=== PATIENT | male | born 1945 | race Caucasian/White ===

== ENCOUNTER 2019-03-08 06:09 | Inpatient (IN) ==
--- NOTE | 2019-02-18 16:05 | PAT Medication Instructions ---
Medication Instructions Date of Service February 18, 2019 Home Medications aspirin [Aspir-81] 81 mg PO QAM carvedilol 3.125 mg PO BID cetirizine [Zyrtec] 5 mg PO PM magnesium 250 mg PO QAM prasugrel 10 mg PO QAM rosuvastatin 10 mg PO PM valsartan 80 mg PO QAM ASK your prescriber and surgeon aspirin [Aspir-81] 81 mg PO QAM prasugrel 10 mg PO QAM DO NOT take the morning of surgery magnesium 250 mg PO QAM valsartan 80 mg PO QAM Take morning of surgery With a small sip of water, OTHERWISE NOTHING TO EAT OR DRINK AFTER MIDNIGHT: carvedilol 3.125 mg PO BID Take evening before surgery carvedilol 3.125 mg PO BID cetirizine [Zyrtec] 5 mg PO PM rosuvastatin 10 mg PO PM Other Notes If you have any questions please call us at [phone] or [phone] or [phone] or [phone]
--- NOTE | 2019-02-21 13:02 | Anesthesiology Consultation ---
Date of Service February 21, 2019 Assessment & Plan (1) Encounter for pre-operative examination: - Awaiting cardiology office visit scheduled 02/22 (Dr. Mejias/Rico). Also, awaiting most recent ECHO report (if available). - Elevated creatinine on preop labs: awaiting response from PCP (Dr. Hawk). - Medication instructions: ASA okay to continue perioperatively per surgeon. Prasugrel instructions per surgeon/cardiology. Chart Review Chart Review: Patient seen in Pre Admission Testing Teaching & Discussion Pre-Anesthesia Teaching/Discussion Notes: Instructed NPO after midnight before surgery,except medications with 15 cc of water. Medication instructions provided according to the PAT guidelines. History Surgery Operation Date: 03/08/19 07:45 Proposed Procedures p L2-S1 Decompression Fusion, Spinal Cord Monitoring - Kwadwo Saucedo DO Height/Weight Height: 5 ft 8 in Weight: 94.1 kg Allergies Allergy/AdvReac Type Severity Reaction Status Date / Time cephalexin [From Keflex] AdvReac Rash Verified 02/18/19 09:09 nitroglycerin AdvReac Hypotension Verified 02/18/19 09:09 perindopril [From Aceon] AdvReac Cough Verified 02/18/19 09:09 Medications Home Medications Medication Instructions Recorded Confirmed Last Taken aspirin [Aspir-81] 81 mg PO QAM 02/18/19 02/18/19 Unknown carvedilol 3.125 mg PO BID 02/18/19 02/18/19 Unknown cetirizine [Zyrtec] 5 mg PO PM 02/18/19 02/18/19 Unknown magnesium 250 mg PO QAM 02/18/19 02/18/19 Unknown prasugrel 10 mg PO QAM 02/18/19 02/18/19 Unknown rosuvastatin 10 mg PO PM 02/18/19 02/18/19 Unknown valsartan 80 mg PO QAM 02/18/19 02/18/19 Unknown Past Medical History Medical History CAD (coronary artery disease) stents x 3 total (most recent stent 9 years ago) GERD (gastroesophageal reflux disease) occasional Hyperlipidemia Hypertension Myocardial Infarction 9 years ago Osteoarthritis Exercise / Class Metabolic Activity II 4-5 Yardwork/Stairs/Walk up hill Past Surgical History Surgical History History of ankle surgery LEFT + PIN, SUBSEQUENTLY REMOVED 02/2018 History of cardiac cath stents x 3 total (most recent stent 9 years ago) History of colonoscopy Hx of toe surgery LEFT BIG TOE Past Anesthesia History No Hx of Anesthesia Complications and No Family Hx of Anesthesia Complications History of PONV No Hx of PONV and No Hx of Motion Sickness Social History Smoking Status: Never smoker Do You Dip or Chew Tobacco: No (QUIT 30 YRS AGO) Hx Alcohol Use: No Hx Substance Use: No substance use type: does not use Review of Systems Occasional reflux. Patient denies chest pain, shortness of breath, dyspnea on exertion, cough, wheezing, palpitations. Physical Exam Vital Signs VITALS BP 112/60 P 74 TEMP 98.3 SP02 95%RA RESP 18 PHYSICAL Mildly decreased cervical extension Full TMJ range of motion. TMD 3 finger breaths Mallampati Score 3 Dentition: full dentures upper/lower Lungs: clear throughout to auscultation Cardiac: regular rate and rhythm, no murmurs noted Spine: normal Carotid arteries: negative bruit Extremities: no edema Testing Laboratory Results 02/21/19 13:20 02/21/19 13:20 PT 10.1 Seconds (9.0-12.0) 02/21/19 13:20 INR 1.0 (0.9-1.1) 02/21/19 13:20 APTT 27.7 Seconds (21.0-31.0) 02/21/19 13:20 Urine Color Yellow 02/21/19 Unknown Urine Appearance Clear (Clear) 02/21/19 Unknown Urine pH 5.0 (4.5-7.5) 02/21/19 Unknown Ur Specific [place] 1.018 (1.000-1.030) 02/21/19 Unknown Urine Protein Negative (Negative) 02/21/19 Unknown Urine Glucose (UA) Negative (Negative) 02/21/19 Unknown Urine Ketones Negative (Negative) 02/21/19 Unknown Urine Nitrite Negative (Negative) 02/21/19 Unknown Ur Leukocyte Esterase Negative (Negative) 02/21/19 Unknown Blood Type O Positive 02/21/19 13:20 Antibody Screen NEGATIVE 02/21/19 13:20 Electrocardiogram Date: 02/21/19 NSR at 67bpm. Low voltage QRS. Chest X-Ray Date: 02/21/19 The lungs appear to be mildly hyperinflated. Coronary artery stent graft. Cardiac mediastinal and hilar silhouettes are within normal limits. There is no pneumothorax, pleural effusion, focal airspace consolidation or overt pulmonary edema. Degenerative changes of the shoulders and spine. Possible hiatal hernia. IMPRESSION: No acute process. Stress Test Date: 12/05/18 Type: exercise Exercise treadmill testing negative for chest pain or EKG evidence of myocardial ischemia. 9.3 METS. 101% MPHR.
--- NOTE | 2019-02-21 13:59 | XRay Report ---
XR chest Pre-admission PA/Lat HISTORY: 73 years-old Male PAT preoperative exam. No acute chest complaints COMPARISON: None available TECHNIQUE: PA and lateral views of the chest FINDINGS: The lungs appear to be mildly hyperinflated. Coronary artery stent graft. Cardiac mediastinal and hil ar silhouettes are within normal limits. There is no pneumothorax, pleural effusion, focal airspace c onsolidation or overt pulmonary edema. Degenerative changes of the shoulders and spine. Possible hiat al hernia. IMPRESSION: No acute process. ACT 112: Negative or not required by law. The above report was generated using voice recognition software. It may contain grammatical, syntax o r spelling errors. Electronically signed by: Teo Lopez M.D. 02/21/2019 1:58 PM
[2019-02-21 14:52] LABS: Basophils # (auto) 0.02 K/uL (0-0.2); Basophils % (auto) 0.3 %; Eosinophils # (auto) 0.27 K/uL (0-0.5); Eosinophils % (auto) 3.7 %; Hematocrit (blood only) 42.6 % (42-52); Hemoglobin 13.9 g/dL (14.0-18.0); Immature Granulocytes # (auto) 0.01 K/uL (0.00-0.02); Immature Granulocytes % (auto) 0.1 %; Lymphocytes # (auto) 1.99 K/uL (1.2-3.4); Lymphocytes % (auto) 27.1 %; Mean Corpuscular Hemoglobin 26.8 pg (25-34); Mean Corpuscular Hgb Conc 32.6 g/dL (32-36); Mean Corpuscular Volume 82.1 fL (80-100); Mean Platelet Volume 10.4 fL (7.4-10.4); Monocytes # (auto) 0.42 K/uL (0.11-0.59); Monocytes % (auto) 5.7 %; Neutrophils # (auto) 4.62 K/uL (1.4-6.5); Neutrophils % (auto) 63.1 %; Platelet Count 280 K/uL (130-400); RDW Coefficient of Variation 13.3 % (11.5-14.5); RDW Standard Deviation 40.3 fL (36.4-46.3); Red Blood Count 5.19 M/uL (4.7-6.1); White Blood Count 7.33 K/uL (4.8-10.8)
[2019-02-21 15:02] LABS: Appearance Urine Clear (Clear); Bilirubin Urine Negative (Negative); Blood Urine Negative (Negative); Color Urine Yellow; Glucose Urine UA Negative (Negative); Ketones Urine Negative (Negative); Leukocyte Esterase Urine Negative (Negative); Nitrite Urine Negative (Negative); Protein Urine Negative (Negative); Specific Gravity Urine 1.018 (1.000-1.030); Urobilinogen Urine Negative (Negative)
[2019-02-21 15:05] LABS: Partial Thromboplastin Time 27.7 Seconds (21.0-31.0); Prothrombin Time 10.1 Seconds (9.0-12.0)
[2019-02-21 16:14] LABS: BUN Creatinine Ratio 13.7 (10-20); Calcium 9.1 mg/dl (8.5-10.1); Creatinine Clr Calc Pharmacy 42.3 ml/min; Est GFR (African American) 45.4; Est GFR (Non-African American) 39.1; Potassium 4.8 mmol/L (3.5-5.1)
--- NOTE | 2019-02-22 08:16 | Electrocardiogram Report ---
Test Reason : Blood Pressure : / mmHG Vent. Rate : 067 BPM Atrial Rate : 067 BPM P-R Int : 180 ms QRS Dur : 084 ms QT Int : 380 ms P-R-T Axes : 070 025 063 degrees QTc Int : 401 ms Normal sinus rhythm Low voltage QRS Abnormal ECG No previous ECGs available Confirmed by Juan Zhang ([id number]) on 02/21/2019 5:51:59 PM Referred By: Kwadwo Saucedo Confirmed By:Benjamin Zhang
[~2019-03-08 06:09] MED LIST: ACETAMINOPHEN 500 MG TAB PO SCH; CEFAZOLIN 2000MG 2,000 MG/15 ML SYR IV SCH; CeleBREX 200 MG CAP PO SCH; GABAPENTIN 300 MG CAP PO SCH; LR 15ML/HR IV SCH
[2019-03-08] MEDS ORDERED: ONDANSETRON INJ 2 MG/ML 2 ML VIAL ONE (06:54)
[2019-03-08] MEDS ORDERED: HYDROmorphone INJ 2 MG/ML SYR/VIAL ONE (06:54)
[2019-03-08] MEDS ORDERED: PROPOFOL IV EMULSION 10 MG/ML 20 ML VIAL IV ONE (06:54)
[2019-03-08] MEDS ORDERED: fentaNYL citrate 100 MCG/2 ML VIAL ONE ×2 (06:54→09:43)
[2019-03-08] MEDS ORDERED: LIDOCAINE HCL 2% 2 ML VIAL/AMP(20MG/ML) INFIL ONE (06:54)
[2019-03-08] MEDS ORDERED: ROCURONIUM BROMIDE 10 MG/ML 5 ML VIAL ONE (06:54)
[2019-03-08] MEDS ORDERED: DEXAMETHASONE SOD INJ 4 MG/ML VIAL ONE (06:54)
[2019-03-08] MEDS ORDERED: LARYING-O-JET KIT (LTA) ONE (07:02)
[2019-03-08] MEDS ORDERED: ALBUMIN HUMAN 5% 12.5 GM/250 ML VIAL IV ONE (07:04)
[2019-03-08] MEDS ORDERED: BACITRACIN INJ 50,000 UNIT VIAL ONE (07:20)
[2019-03-08] MEDS ORDERED: BUPIVACAINE/EPINEPHRINE 0.5% MPF 1:200,000 10 ML VIAL ONE (07:20)
[2019-03-08] MEDS ORDERED: PHENYLEPHRINE 100MCG/ML 5ML SYR IV PRN (07:33)
[2019-03-08] MEDS ORDERED: ePHEDrine sulfate 50 MG/ML AMP IV PRN (07:33)
[2019-03-08] MEDS ORDERED: HYDROmorphone INJ 1 MG/ML SYRINGE IV PRN ×2 (07:33→12:17)
[2019-03-08] MEDS ORDERED: MEPERIDINE HCL 25 MG/ML CARP IV PRN (07:33)
[2019-03-08] MEDS ORDERED: ATROPINE SULFATE 0.1 MG/ML 10ML SYR IV PRN (07:33)
[2019-03-08] MEDS ORDERED: LABETALOL HCL IV 5 MG/ML 20ML IV PRN (07:33)
[2019-03-08] MEDS ORDERED: fentaNYL citrate 100 MCG/2 ML VIAL IV PRN (07:33)
[2019-03-08] MEDS ORDERED: ONDANSETRON INJ 2 MG/ML 2 ML VIAL IV PRN (07:33)
--- NOTE | 2019-03-08 07:36 | History & Physical Bridge Note ---
Date of Service March 08, 2019 History & Physical Bridge Note I have examined the patient, reviewed the History & Physical and in the interval since the performance of the History & Physical I have noted the following changes of clinical significance: no changes noted
--- NOTE | 2019-03-08 07:37 | History & Physical Report ---
Date of Service March 08, 2019 Assessment & Plan (1) Neurogenic claudication due to lumbar spinal stenosis: L2-S1 decompression fusion Present on Admission?: Yes History of Present Illness Chief Complaint: Back and bilateral leg pain Primary Care Provider: Tadeo Hawk This is a 73-year-old male presents with chronic persistent back and bilateral leg pain. After failing extensive course of nonoperative care is here for surgical invention. Allergies Allergy/AdvReac Type Severity Reaction Status Date / Time cephalexin [From Keflex] AdvReac Rash Verified 03/08/19 06:34 nitroglycerin AdvReac Hypotension Verified 03/08/19 06:34 perindopril [From Aceon] AdvReac Cough Verified 03/08/19 06:34 Home Medications Home Medications Medication Instructions Recorded Confirmed Type aspirin [Aspir-81] 81 mg PO QAM 02/18/19 02/18/19 History carvedilol 3.125 mg PO BID 02/18/19 02/18/19 History cetirizine [Zyrtec] 5 mg PO PM 02/18/19 02/18/19 History magnesium 250 mg PO QAM 02/18/19 02/18/19 History prasugrel 10 mg PO QAM 02/18/19 02/18/19 History rosuvastatin 10 mg PO PM 02/18/19 02/18/19 History valsartan 80 mg PO QAM 02/18/19 02/18/19 History Past Med/Surg History Medical History CAD (coronary artery disease) stents x 3 total (most recent stent 9 years ago) GERD (gastroesophageal reflux disease) occasional Hyperlipidemia Hypertension Myocardial Infarction 9 years ago Osteoarthritis Surgical History History of ankle surgery LEFT + PIN, SUBSEQUENTLY REMOVED 02/2018 History of cardiac cath stents x 3 total (most recent stent 9 years ago) History of colonoscopy Hx of toe surgery LEFT BIG TOE Social History Preferred Language: Bengali Communication Ability: Effective Residential Tech Required: No Beliefs That Will Affect Care: None Current Living Situation: Spouse Other Information That Helps Us Care for You: No Feels Safe at Home: Yes Safety Concerns: Feels Safe At This Time Smoking Status: Never smoker Do You Dip or Chew Tobacco: No (QUIT 30 YRS AGO) ; Second Hand Exposure: Yes ; Tobacco Cessation Education Requested by Patient: No Hx Alcohol Use: No Hx Substance Use: No Physical Exam Physical Exam: Patient is alert and oriented neurologically intact. Results & Data Vital Signs (Past 12 Hours) Vital Signs Temp Pulse Resp BP Pulse Ox 03/08/19 06:37 36.7 C 75 18 141/79 H 100
[2019-03-08] MEDS ORDERED: CLINDAMYCIN 600 MG/54 ML D5W IV ONE (07:52)
[2019-03-08] MEDS ORDERED: CLINDAMYCIN 600 MG/54 ML BAG IV STA (08:00)
[2019-03-08] MEDS ORDERED: ePHEDrine sulfate 50 MG/ML SYR ONE (09:55)
[2019-03-08] MEDS ORDERED: PHENYLEPHRINE 100MCG/ML 5ML SYR ONE (09:55)
[2019-03-08] MEDS ORDERED: GLYCOPYRROLATE 0.2 MG/ML VIAL ONE (10:15)
[2019-03-08] MEDS ORDERED: NEOSTIGMINE METHYLSULFATE 1 MG/ML 10ML VIAL ONE (10:15)
[2019-03-08] MEDS ORDERED: FLOSEAL HEMOSTATIC MATRIX 10ML TOP ONE (10:22)
--- NOTE | 2019-03-08 10:23 | Fluoroscopy Report ---
INTRAOPERATIVE RADIOGRAPHS CLINICAL HISTORY: L4-S1 spinal fusion. Fluoroscopy time: 23 seconds. FINDINGS: 2 spot fluoroscopic views of the lumbar spine are presented. There has been laminectomy and posterior fusion from L4-S1. Interpedicular screws are present at all levels. The orthopedic hardwar e appears intact. Small anterior osteophytes are noted. IMPRESSION: Intraoperative images from L4-S1 spinal fusion as above. Electronically signed by: Wei Kennedy M.D. 03/08/2019 10:22 AM
--- NOTE | 2019-03-08 10:23 | Operative Report ---
Post Operative Report Pre & Post Diagnosis Operation Date: 03/08/19 07:45 Pre-Op Diagnosis: Lumbar spinal stenosis with neurogenic claudication Post-Op Diagnosis: Same I identified the patient and participated in the time-out.: Yes Procedure Operation Date: 03/08/19 07:45 Actual Procedures #1 lumbar decompression with bilateral medial facetectomies and foraminotomies L3-4 L4-5 L5-S1. #2 posterior spinal fusion L4-5 L5-S1. #3 placement posterior instrumentation L4-5 L5-S1. #4 placement locally harvested morselized autograft in the posterior lateral gutters. #5 placement infuse collagen sponge, master graft and ostial amp in the posterior lateral gutters. Surgeon Kwadwo Saucedo, Registered Respiratory Therapist Denis Moreno Estimated Blood Loss 150 Findings Consistent with Post-Op Diagnosis Specimens None Indications This is a 73-year-old male who presents with above-mentioned diagnosis after failing extensive course of nonoperative care is here for surgical intervention. Description of Procedure Patient was met with identified informed consent obtained. Patient was then desi en to the operative suite underwent intubation placed in a prone position the Floyd table on top of the Tony frame. All bony prominences well-padded eyes inspected to ensure no external pressure placed upon the. This point the lumbar spine was prepped and draped in normal sterile fashion. Sharp dissection with the assistance of Bovie cautery was performed down to and exposing the lamina and transverse processes of L4-L5 and the sacral ala bilaterally. From a caudal cephalad fashion complete laminectomy of L5 L4 and partial laminectomy of L3 was performed including bilateral medial facetectomies and foraminotomies addressing severe spinal stenosis. Pedicle screws were then placed in L4-L5 and S1 levels bilaterally with assistance of fluoroscopy the purposes ermelinda locked into place. Cross-link was locked in position. The transverse processes of L4-L5 and sacral ala burred to subcortical bleeding bone. Infuse collagen sponge master graft and local autograft was placed in the posterior lateral gutters. 15 round JEANNIE drain inserted. The incision was then closed with 1 Vicryl in the fascia 2-0 Vicryl subcutaneously and 4 Monocryl for final skin closure. Steri-Strips dressings placed. Patient will continue to PACU stable addition. Please note Denis Moreno was present at the entire procedure and with the patient positioning complex portions of the surgery and final skin closure. Lastly spinal cord monitoring was utilized that the procedure no changes noted. I attest to the content of the Intraoperative Record and any orders documented therein. Any exceptions are noted below.
--- NOTE | 2019-03-08 11:55 | Anesthesiology Progress Note ---
Date of Service March 08, 2019 Anesthesia Post Procedure Vital Signs Vital Signs: Temp Pulse Pulse Resp BP Pulse Ox 03/08/19 11:45 36.3 C L 53 L 12 136/74 96 03/08/19 11:35 52 L 10 L 130/73 97 03/08/19 11:25 69 10 L 149/84 H 99 03/08/19 11:15 55 L 10 L 133/70 98 03/08/19 11:05 55 L 10 L 143/74 H 98 03/08/19 10:55 62 10 L 148/78 H 93 03/08/19 10:48 37.0 C 71 10 L 160/90 H 98 03/08/19 06:37 36.7 C 75 18 141/79 H 100 Pain Intensity Bilateral Back: Pain Intensity: 2 Transfer of Care Handoff Completed per policy Notes Mental Status: alert / awake / arousable Patient Amnestic to Procedure: Yes Nausea / Vomiting: adequately controlled Pain: adequately controlled Airway Patency, RR, SpO2: stable & adequate BP & HR: stable & adequate Hydration State: stable & adequate Anesthetic Complications: no major complications apparent and Pt Satisfied with anesthetic care Notes: The patient is awake and stable.
[2019-03-08] MEDS ORDERED: FAMOTIDINE 20 MG TAB PO PRN (12:17)
[2019-03-08] MEDS ORDERED: MAGNESIUM HYDROXIDE SUSP 30 ML UDC PO PRN (12:17)
[2019-03-08] MEDS ORDERED: METOCLOPRAMIDE HCL INJ 5 MG/ML 2 ML VIAL IV PRN (12:17)
[2019-03-08] MEDS ORDERED: ACETAMINOPHEN 1,000 MG/100 ML VIAL IV PRN (12:17)
[2019-03-08] MEDS ORDERED: DO NOT ADMINISTER FLU VACCINE PRN (12:17)
[2019-03-08] MEDS ORDERED: ACETAMINOPHEN 500 MG TAB PO PRN (12:17)
[2019-03-08] MEDS ORDERED: DO NOT ADMINISTER PNEUMOCOCCAL VACCINE PRN (12:17)
[2019-03-08] MEDS ORDERED: LORazepam 0.5 MG TAB PO PRN (12:17)
[2019-03-08] MEDS ORDERED: LORazepam 0.5 MG/1 ML VIAL IV PRN (12:17)
[2019-03-08] MEDS ORDERED: bisacodyL 10 MG SUPP PR PRN (12:17)
[2019-03-08] MEDS ORDERED: NALOXONE HCL 0.4 MG/1 ML VIAL/CARP IV PRN (12:17)
[2019-03-08] MEDS ORDERED: ONDANSETRON 4 MG OD TAB PO PRN (12:17)
[2019-03-08] MEDS ORDERED: PROMETHAZINE HCL 12.5 MG in SODIUM CHLORIDE 0.9% 50 ML IV PRN (12:17)
[2019-03-08] MEDS ORDERED: ALUMINUM/MAGNESIUM SUSP 30 ML UDC PO PRN (12:17)
[2019-03-08] MEDS ORDERED: SOD PHOSPHATE/SOD BIPHOSPHATE ENEMA 132 ML BTL PR PRN (12:17)
[2019-03-08] MEDS ORDERED: TRAMADOL HCL 50 MG TABLET PO PRN (12:17)
[2019-03-08] MEDS ORDERED: HYDROmorphone INJ 0.5 MG/0.5 ML SYR IV PRN (12:17)
[2019-03-08] MEDS: ONDANSETRON INJ 2 MG/ML 2 ML VIAL IV PRN (13:09)
--- NOTE | 2019-03-08 13:16 | Internal Medicine Consult Note ---
Date of Consultation March 08, 2019 Assessment & Plan (1) Neurogenic claudication due to lumbar spinal stenosis: Has had back pain with bilateral leg pain for some time Status post lumbar decompression and fusion POD #0 Management will be as per Ortho Anticoagulation as per Ortho Monitor CBC Present on Admission?: Yes (2) CAD (coronary artery disease): History of cardiac stents x3, last one being about 9 years ago Has been on dual antiplatelet therapy Denies any acute symptoms We will continue aspirin and Effient (3) Hypertension: Blood pressure seems to be stable Continue current medications (4) GERD (gastroesophageal reflux disease): No acute symptoms Has been on famotidine (5) Hyperlipidemia: Continue Crestor (6) Osteoarthritis: No acute arthritis involving any joints (7) LOLITA (acute kidney injury): Creatinine noted to be high at 1.68 with BUN high at 23 Likely has dehydration Do not have any prior PRP to compare Will give her a small dose of intravenous fluid Monitor PRP History of Present Illness Reason for Consultation: Medical management following lumbar decompression and fusion Requesting Physician: Dr. Saucedo Attending Physician: Kwadwo Saucedo, DO History of Present Illness He is a 73-year-old male with significant past medical history of CAD status post stents x3' most recent one being 9 years ago, hypertension, hyperlipidemia, osteoarthritis and GERD apparently has been complaining of chronic persistent back pain with bilateral leg pain for some time. Extensive outpatient management failed and he underwent lumbar decompression and fusion by Dr. Saucedo today. He has had preop evaluation by his primary care physician and everything came out to be unremarkable. Following surgery he complains to have drowsiness likely secondary to effect of anesthetics and pain medications but denies any significant chest pain, shortness of breath, palpitation, abdominal pain, nausea or vomiting, no numbness and/or tingling in the extremities. Allergies Allergy/AdvReac Type Severity Reaction Status Date / Time cephalexin [From Keflex] AdvReac Rash Verified 03/08/19 06:34 nitroglycerin AdvReac Hypotension Verified 03/08/19 06:34 perindopril [From Aceon] AdvReac Cough Verified 03/08/19 06:34 Home Medications Home Medications Medication Instructions Recorded Confirmed Type aspirin [Aspir-81] 81 mg PO QAM 02/18/19 02/18/19 History carvedilol 3.125 mg PO BID 02/18/19 02/18/19 History cetirizine [Zyrtec] 5 mg PO PM 02/18/19 02/18/19 History magnesium 250 mg PO QAM 02/18/19 02/18/19 History prasugrel 10 mg PO QAM 02/18/19 02/18/19 History rosuvastatin 10 mg PO PM 02/18/19 02/18/19 History valsartan 80 mg PO QAM 02/18/19 02/18/19 History Patient History Medical History CAD (coronary artery disease) stents x 3 total (most recent stent 9 years ago) GERD (gastroesophageal reflux disease) occasional Hyperlipidemia Hypertension Myocardial Infarction 9 years ago Osteoarthritis Surgical History History of ankle surgery LEFT + PIN, SUBSEQUENTLY REMOVED 02/2018 History of cardiac cath stents x 3 total (most recent stent 9 years ago) History of colonoscopy Hx of toe surgery LEFT BIG TOE Social History Preferred Language: Liberian Communication Ability: Effective Group Insurance Specialist Required: No Beliefs That Will Affect Care: None Current Living Situation: Spouse Other Information That Helps Us Care for You: No Feels Safe at Home: Yes Safety Concerns: Feels Safe At This Time Smoking Status: Never smoker Do You Dip or Chew Tobacco: No (QUIT 30 YRS AGO) ; Second Hand Exposure: Yes ; Tobacco Cessation Education Requested by Patient: No Hx Alcohol Use: No Hx Substance Use: No Review of Systems Review of Systems: All systems reviewed & are unremarkable except as noted in HPI & below Physical Exam Physical Exam: Lying in bed with some drowsiness but no acute distress Constitutional: well developed, well nourished, cooperative and + lethargic; no acute distress Eyes: PERRL, conjunctivae normal, anicteric sclerae ENMT: external ear and nose normal, oropharynx normal Neck: trachea midline, no thyromegaly Respiratory: normal respiratory effort; no respiratory distress Auscultation: lungs clear to auscultation bilaterally Cardiovascular: Rate/Rhythm: regular rate and regular rhythm Gastrointestinal (Abdomen): Inspection/Auscultation: abdomen normal to inspection and normal bowel sounds; abdomen not distended Neurologic: Generalized weakness with drowsiness. Moving all limbs equally. No focal neuro deficit Lymphatic: no cervical or axillary lymphadenopathy Results & Data Vital Signs (Past 12 Hours) Vital Signs Temp Pulse Pulse Resp BP Pulse Ox 03/08/19 12:40 50 L 12 146/79 H 97 03/08/19 12:10 36.2 C L 53 L 12 138/76 98 03/08/19 12:00 64 12 129/78 96 03/08/19 11:55 53 L 12 126/64 96 03/08/19 11:45 36.3 C L 53 L 12 136/74 96 03/08/19 11:35 52 L 10 L 130/73 97 03/08/19 11:25 69 10 L 149/84 H 99 03/08/19 11:15 55 L 10 L 133/70 98 03/08/19 11:05 55 L 10 L 143/74 H 98 03/08/19 10:55 62 10 L 148/78 H 93 03/08/19 10:48 37.0 C 71 10 L 160/90 H 98 03/08/19 06:37 36.7 C 75 18 141/79 H 100 Medications Administered Current Inpatient Medications Acetaminophen (Tylenol) 1,000 mg PO Q8H PRN PRN Reason: MILD Pain Rating 1,2,3 Stop: 04/07/19 12:16 Al Hydrox/Mg Hydrox/Simethicone (Maalox) 30 ml PO Q6H PRN PRN Reason: Dyspepsia Stop: 04/07/19 12:16 Aspirin (Ecotrin Ectab) 81 mg PO QAM [facility] Stop: 04/08/19 08:59 Bisacodyl (Dulcolax) 10 mg NM DAILY PRN PRN Reason: Constipation Stop: 04/07/19 12:16 Carvedilol (Coreg) 3.125 mg PO BID [facility] Stop: 04/07/19 20:59 Diphenhydramine HCl (Benadryl Capsule) 25 mg PO Q6H PRN PRN Reason: Allergic Rhinitis/Insomnia Stop: 04/07/19 12:16 Famotidine (Pepcid) 20 mg PO Q12H PRN PRN Reason: Dyspepsia Stop: 04/07/19 12:16 Hydromorphone HCl (Dilaudid) 0.5 mg IV Q3H PRN PRN Reason: moderate pain (scale 4-6) Stop: 03/22/19 12:16 Hydromorphone HCl (Dilaudid) 1 mg IV Q3H PRN PRN Reason: severe pain (scale 7-10) Stop: 03/22/19 12:16 Hydroxyzine HCl (Vistaril) 25 mg PO Q8H PRN PRN Reason: Anxiety Stop: 04/07/19 12:16 Promethazine HCl 12.5 mg/ (Sodium Chloride) 50.5 mls @ 204 mls/hr IV Q6H PRN PRN Reason: Nausea &/or Vomiting Stop: 04/07/19 12:16 Lorazepam (Ativan) 0.5 mg in 1 mls @ 0.5 mls/min IV Q8H PRN PRN Reason: Sedation/Anxiety Stop: 04/07/19 12:16 Sodium Chloride (Nss 1000ml) 1,000 mls @ 100 mls/hr IV .Q10H [facility] Stop: 04/07/19 12:59 Acetaminophen (Ofirmev) 1,000 mg in 100 mls @ 400 mls/hr IV Q8H PRN PRN Reason: MILD Pain Rating 1,2,3 Stop: 03/09/19 12:16 Clindamycin Phosphate 600 mg/ (Dextrose) 54 mls @ 100 mls/hr IV Q8H [facility] Stop: 03/09/19 00:33 Influenza Virus Vaccine Quadrival (Flu Vaccine, Do Not Administer) 1 ea N/A PRN PRN PRN Reason: Notification Stop: 04/07/19 12:16 Lorazepam (Ativan) 0.5 mg PO Q8H PRN PRN Reason: Sedation/Anxiety Stop: 04/07/19 12:16 Magnesium Hydroxide (Milk Of Magnesia) 30 ml PO DAILY PRN PRN Reason: Constipation Stop: 04/07/19 12:16 Metoclopramide HCl (Reglan) 10 mg IV Q6H PRN PRN Reason: Nausea &/or Vomiting Stop: 04/07/19 12:16 Naloxone HCl (Narcan) 0.1 mg IV Q5M PRN; Protocol PRN Reason: Oversedation/Resp Depression Stop: 04/07/19 12:16 Ondansetron HCl (Zofran) 4 mg IV Q6H PRN PRN Reason: Nausea &/or Vomiting Stop: 04/07/19 12:16 Last Admin: 03/08/19 13:09 Dose: 4 mg Documented by: Ondansetron HCl (Zofran Odt) 4 mg PO Q6H PRN PRN Reason: Nausea Stop: 04/07/19 12:16 Oxycodone HCl (Roxicodone Immediate Rel) 5 - 10 mg PO Q4H PRN PRN Reason: Moderate-Severe Pain Stop: 03/22/19 12:16 Pneumococcal Polyvalent Vaccine (Pneumococcal Vacc, Do Not Administer) 1 ea N/A PRN PRN PRN Reason: Notification Stop: 04/07/19 12:16 Polyethylene Glycol (Miralax Powder Packet) 17 gm PO Q6 [facility] Stop: 04/08/19 05:59 Prasugrel (Effient) 10 mg PO QAM [facility] Stop: 04/08/19 08:59 Rosuvastatin Calcium (Crestor) 10 mg PO PM [facility] Stop: 04/07/19 20:59 Senna/Docusate Sodium (Senokot S) 2 tab PO HS [facility] Stop: 04/07/19 20:59 Sodium Biphosphate/Sodium Phosphate (Fleet Enema) 132 ml NM ONE PRN PRN Reason: Constipation Stop: 04/07/19 12:16 Tramadol HCl (Ultram) 50 - 100 mg PO Q4H PRN PRN Reason: Moderate-Severe Pain Stop: 04/07/19 12:16 Valsartan (Diovan) 80 mg PO QAM [facility] Stop: 04/08/19 08:59
[2019-03-08] MEDS: SODIUM CHLORIDE 0.9% 1000ML 1,000 ML IV SCH ×2 (13:23→22:47)
[2019-03-08] MEDS: CLINDAMYCIN 600 MG in DEXTROSE 5% 50 ML IV SCH (15:35)
[2019-03-08] MEDS: ROSUVASTATIN CALCIUM 10 MG TAB PO SCH (21:36)
[2019-03-08] MEDS: DOCUSATE SODIUM/SENNA 50/8.6MG TAB PO SCH (21:36)
[2019-03-08] MEDS: carvediloL 3.125 MG TAB PO SCH (21:38)
[2019-03-09] MEDS: CLINDAMYCIN 600 MG in DEXTROSE 5% 50 ML IV SCH (00:27)
[2019-03-09] MEDS: POLYETHYLENE (MIRALAX) 17 GM PACK PO SCH ×3 (06:25→18:01)
[2019-03-09 06:44] LABS: Immature Granulocytes # (auto) 0.05 K/uL (0.00-0.02); Immature Granulocytes % (auto) 0.3 %; Lymphocytes # (auto) 0.93 K/uL (1.2-3.4); Lymphocytes % (auto) 5.8 %; Mean Corpuscular Hemoglobin 27.2 pg (25-34); Mean Corpuscular Hgb Conc 33.3 g/dL (32-36); Mean Corpuscular Volume 81.5 fL (80-100); Mean Platelet Volume 10.7 fL (7.4-10.4); Monocytes # (auto) 1.12 K/uL (0.11-0.59); Neutrophils % (auto) 86.9 %; Platelet Count 200 K/uL (130-400); RDW Standard Deviation 41.7 fL (36.4-46.3); Red Blood Count 4.05 M/uL (4.7-6.1)
[2019-03-09 07:17] LABS: BUN Creatinine Ratio 14.7 (10-20); Calcium 8.4 mg/dl (8.5-10.1); Creatinine Clr Calc Pharmacy 48.7 ml/min; Est GFR (African American) 53.8; Est GFR (Non-African American) 46.4; Magnesium 1.8 mg/dl (1.8-2.4); Potassium 4.8 mmol/L (3.5-5.1)
--- NOTE | 2019-03-09 08:44 | Orthopedic Progress Note ---
Date of Service March 09, 2019 Assessment & Plan (1) Neurogenic claudication due to lumbar spinal stenosis: He is doing well postop day 1. We will continue with GI and DVT prophylaxis. We will continue to monitor his pain levels and provide adequate pain control. Will ambulate with physical therapy today and see how he does over the weekend. The plan is to get him home sometime early next week. Subjective Patient is seen bedside postoperative day #1. He is doing well at this point. His pain is well controlled. He is not having the pain going down the legs that he had prior to surgery. He is tolerating p.o. without difficulties. Overall he is progressing nicely. He denies any other numbness, tingling, paresthesias. Physical Exam Physical Exam: On exam he is alert and oriented. His abdomen soft nontender his calves are supple nontender. Strength and sensation are both intact his dressings clean dry and intact as well. He is placed out 70 cc of drainage on the last shift. He appears comfortable. Results & Data Vital Signs (Past 12 Hours) Vital Signs Temp Pulse Pulse Resp BP BP Pulse Ox 03/09/19 07:30 36.7 C 67 20 111/59 L 95 03/09/19 03:23 36.6 C 65 16 114/67 94 03/08/19 23:11 36.4 C L 60 16 129/78 97 03/08/19 21:39 72 131/79
[2019-03-09] MEDS: PRASugrel TAB 10 MG TAB PO SCH (08:53)
[2019-03-09] MEDS: VALSARTAN 80 MG TAB PO SCH (08:53)
[2019-03-09] MEDS: ASPIRIN 81 MG ECTAB PO SCH (08:54)
[2019-03-09] MEDS: carvediloL 3.125 MG TAB PO SCH ×2 (08:54→20:20)
[2019-03-09] MEDS ORDERED: NON-FORMULARY MEDICATION (Magnesium 250 MG) PO SCH (09:00)
[2019-03-09] MEDS: OXYCODONE HCL IR 5 MG TAB (IMMEDIATE RELEASE) PO PRN ×2 (09:21→20:36)
--- NOTE | 2019-03-09 15:50 | Hospitalist Progress Note ---
Date of Service March 09, 2019 Assessment & Plan (1) Neurogenic claudication due to lumbar spinal stenosis: Has had back pain with bilateral leg pain for some time Status post lumbar decompression and fusion POD #1 Pain management, as per Ortho Anticoagulation as per Ortho Monitor CBC Acute blood loss anemia/postsurgical anemia -Hemoglobin 11.0, down from 13.9 (earlier in February) -Denies any symptoms, such as chest pain, dizziness, lightheadedness -cont. 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 Denies any fevers, chills, chest pain, shortness of breath, abdominal pain, nausea or vomiting. Back pain is well controlled. No difficulty moving legs, ambulating well. Review of Systems Review of Systems: All systems reviewed & are unremarkable except as noted in HPI & below Constitutional: no fever, no chills and no fatigue Respiratory: no cough, no dyspnea and no pain on inspiration Cardiovascular: no chest pain, no palpitations and no edema Gastrointestinal: no abdominal pain, no nausea and no vomiting Physical Exam Physical Exam: Physical Exam: Elderly male sitting up in chair, in no acute distress Constitutional: well developed, well nourished, cooperative Eyes: PERRL, EOMI, conjunctivae normal, anicteric sclerae ENMT: external ear and nose normal, oropharynx normal Neck: trachea midline, no thyromegaly Respiratory: normal respiratory effort; no respiratory distress Auscultation: lungs clear to auscultation bilaterally, no wheezing, rhonchi or crackles Cardiovascular: Rate/Rhythm: regular rate and regular rhythm, no murmurs noted Gastrointestinal (Abdomen):abdomen normal to inspection and normal bowel sounds; not distended, nontender to palpation Neurologic: Alert and oriented x3, speech fluent, no facial asymmetry, moves all 4 extremities spontaneously Skin: Warm, dry, no rash, well-perfused Results & Data Vital Signs (Past 12 Hours) Vital Signs Temp Pulse Pulse Resp BP Pulse Ox 03/09/19 15:11 36.7 C 78 17 119/68 96 03/09/19 11:23 36.6 C 67 16 125/69 91 03/09/19 07:30 36.7 C 67 20 111/59 L 95 Laboratory Results 03/09/19 03/09/19 Range/Units 06:02 06:02 WBC 16.00 H (4.8-10.8) K/uL RBC 4.05 L (4.7-6.1) M/uL Hgb 11.0 L (14.0-18.0) g/dL Hct 33.0 L (42-52) % MCV 81.5 (80-100) fL MCH 27.2 (25-34) pg MCHC 33.3 (32-36) g/dL RDW Std Deviation 41.7 (36.4-46.3) fL RDW Coeff of Halie 14.0 (11.5-14.5) % Plt Count 200 (130-400) K/uL MPV 10.7 H (7.4-10.4) fL Immature Gran % (Auto) 0.3 % Neut % (Auto) 86.9 % Lymph % (Auto) 5.8 % Love % (Auto) 7.0 % Eos % (Auto) 0.0 % Baso % (Auto) 0.0 % Immature Gran # (Auto) 0.05 H (0.00-0.02) K/uL Neut # (Auto) 13.90 H (1.4-6.5) K/uL Lymph # (Auto) 0.93 L (1.2-3.4) K/uL Love # (Auto) 1.12 H (0.11-0.59) K/uL Eos # (Auto) 0.00 (0-0.5) K/uL Baso # (Auto) 0.00 (0-0.2) K/uL Sodium 139 (136-145) mmol/L Potassium 4.8 (3.5-5.1) mmol/L Chloride 111 H (98-107) mmol/L Carbon Dioxide 24 (21-32) mmol/L Anion Gap 4.0 (3-11) BUN 21 H (7-18) mg/dl Creatinine 1.46 H (0.6-1.4) mg/dl Est Cr Clr Drug Dosing 48.7 ml/min Est GFR ( Amer) 53.8 Est GFR (Non-Af Amer) 46.4 BUN/Creatinine Ratio 14.7 (10-20) Glucose 126 H (70-99) mg/dl Calcium 8.4 L (8.5-10.1) mg/dl Magnesium 1.8 (1.8-2.4) mg/dl Medications Administered Current Inpatient Medications Acetaminophen (Tylenol) 1,000 mg PO Q8H PRN PRN Reason: MILD Pain Rating 1,2,3 Stop: 04/07/19 12:16 Al Hydrox/Mg Hydrox/Simethicone (Maalox) 30 ml PO Q6H PRN PRN Reason: Dyspepsia Stop: 04/07/19 12:16 Aspirin (Ecotrin Ectab) 81 mg PO QAM [facility] Stop: 04/08/19 08:59 Last Admin: 03/09/19 08:54 Dose: 81 mg Documented by: Bisacodyl (Dulcolax) 10 mg [place] DAILY PRN PRN Reason: Constipation Stop: 04/07/19 12:16 Carvedilol (Coreg) 3.125 mg PO BID [facility] Stop: 04/07/19 20:59 Last Admin: 03/09/19 08:54 Dose: 3.125 mg Documented by: Diphenhydramine HCl (Benadryl Capsule) 25 mg PO Q6H PRN PRN Reason: Allergic Rhinitis/Insomnia Stop: 04/07/19 12:16 Famotidine (Pepcid) 20 mg PO Q12H PRN PRN Reason: Dyspepsia Stop: 04/07/19 12:16 Hydromorphone HCl (Dilaudid) 0.5 mg IV Q3H PRN PRN Reason: moderate pain (scale 4-6) Stop: 03/22/19 12:16 Hydromorphone HCl (Dilaudid) 1 mg IV Q3H PRN PRN Reason: severe pain (scale 7-10) Stop: 03/22/19 12:16 Hydroxyzine HCl (Vistaril) 25 mg PO Q8H PRN PRN Reason: Anxiety Stop: 04/07/19 12:16 Promethazine HCl 12.5 mg/ (Sodium Chloride) 50.5 mls @ 204 mls/hr IV Q6H PRN PRN Reason: Nausea &/or Vomiting Stop: 04/07/19 12:16 Lorazepam (Ativan) 0.5 mg in 1 mls @ 0.5 mls/min IV Q8H PRN PRN Reason: Sedation/Anxiety Stop: 04/07/19 12:16 Influenza Virus Vaccine Quadrival (Flu Vaccine, Do Not Administer) 1 ea N/A PRN PRN PRN Reason: Notification Stop: 04/07/19 12:16 Lorazepam (Ativan) 0.5 mg PO Q8H PRN PRN Reason: Sedation/Anxiety Stop: 04/07/19 12:16 Magnesium Hydroxide (Milk Of Magnesia) 30 ml PO DAILY PRN PRN Reason: Constipation Stop: 04/07/19 12:16 Metoclopramide HCl (Reglan) 10 mg IV Q6H PRN PRN Reason: Nausea &/or Vomiting Stop: 04/07/19 12:16 Naloxone HCl (Narcan) 0.1 mg IV Q5M PRN; Protocol PRN Reason: Oversedation/Resp Depression Stop: 04/07/19 12:16 Ondansetron HCl (Zofran) 4 mg IV Q6H PRN PRN Reason: Nausea &/or Vomiting Stop: 04/07/19 12:16 Last Admin: 03/08/19 13:09 Dose: 4 mg Documented by: Ondansetron HCl (Zofran Odt) 4 mg PO Q6H PRN PRN Reason: Nausea Stop: 04/07/19 12:16 Oxycodone HCl (Roxicodone Immediate Rel) 5 - 10 mg PO Q4H PRN PRN Reason: Moderate-Severe Pain Stop: 03/22/19 12:16 Last Admin: 03/09/19 09:21 Dose: 5 mg Documented by: Pneumococcal Polyvalent Vaccine (Pneumococcal Vacc, Do Not Administer) 1 ea N/A PRN PRN PRN Reason: Notification Stop: 04/07/19 12:16 Polyethylene Glycol (Miralax Powder Packet) 17 gm PO Q6 [facility] Stop: 04/08/19 05:59 Last Admin: 03/09/19 12:27 Dose: 17 gm Documented by: Prasugrel (Effient) 10 mg PO QAM [facility] Stop: 04/08/19 08:59 Last Admin: 03/09/19 08:53 Dose: 10 mg Documented by: Rosuvastatin Calcium (Crestor) 10 mg PO PM [facility] Stop: 04/07/19 20:59 Last Admin: 03/08/19 21:36 Dose: 10 mg Documented by: Senna/Docusate Sodium (Senokot S) 2 tab PO HS [facility] Stop: 04/07/19 20:59 Last Admin: 03/08/19 21:36 Dose: 2 tab Documented by: Sodium Biphosphate/Sodium Phosphate (Fleet Enema) 132 ml AL ONE PRN PRN Reason: Constipation Stop: 04/07/19 12:16 Tramadol HCl (Ultram) 50 - 100 mg PO Q4H PRN PRN Reason: Moderate-Severe Pain Stop: 04/07/19 12:16 Valsartan (Diovan) 80 mg PO QAM [facility] Stop: 04/08/19 08:59 Last Admin: 03/09/19 08:53 Dose: 80 mg Documented by:
[2019-03-09] MEDS: DOCUSATE SODIUM/SENNA 50/8.6MG TAB PO SCH (20:21)
[2019-03-09] MEDS: ROSUVASTATIN CALCIUM 10 MG TAB PO SCH (20:23)
[2019-03-10] MEDS: POLYETHYLENE (MIRALAX) 17 GM PACK PO SCH ×4 (00:45→18:49)
[2019-03-10 06:34] LABS: Hematocrit (blood only) 33.8 % (42-52); Mean Corpuscular Hgb Conc 32.5 g/dL (32-36); Mean Corpuscular Volume 82.8 fL (80-100); Platelet Count 194 K/uL (130-400); RDW Coefficient of Variation 14.2 % (11.5-14.5); RDW Standard Deviation 42.6 fL (36.4-46.3); Red Blood Count 4.08 M/uL (4.7-6.1); White Blood Count 11.12 K/uL (4.8-10.8)
[2019-03-10 07:04] LABS: BUN Creatinine Ratio 13.5 (10-20); Calcium 8.5 mg/dl (8.5-10.1); Creatinine Clr Calc Pharmacy 44.2 ml/min; Est GFR (African American) 47.8; Est GFR (Non-African American) 41.2; Potassium 4.1 mmol/L (3.5-5.1)
[2019-03-10] MEDS: ASPIRIN 81 MG ECTAB PO SCH (08:20)
[2019-03-10] MEDS: VALSARTAN 80 MG TAB PO SCH (08:20)
[2019-03-10] MEDS: PRASugrel TAB 10 MG TAB PO SCH (08:21)
[2019-03-10] MEDS: carvediloL 3.125 MG TAB PO SCH ×2 (08:21→20:54)
--- NOTE | 2019-03-10 08:54 | Orthopedic Progress Note ---
Date of Service March 10, 2019 Assessment & Plan (1) Neurogenic claudication due to lumbar spinal stenosis: This time patient is progressing nicely. His drainage is slowing down. We will maintain his drain and dressing today and will likely get him home tomorrow. Continue with GI DVT prophylaxis and encourage fluid intake as well. Subjective Patient was seen bedside in room 307. He states that he is doing well today. He has some discomfort but is well controlled. He has been up and walking several times this morning already. He is tolerating p.o. but is not yet had a bowel movement. He denies any other numbness, tingling, or paresthesias. Physical Exam Physical Exam: On exam he is alert and oriented. He is in no apparent distress. His lower extremity motor exam reveals no focal atrophy strength and sensation both intact his gait is stable with his walker. His abdomen soft nontender his calves are supple nontender. Results & Data Vital Signs (Past 12 Hours) Vital Signs Temp Pulse Resp BP Pulse Ox 03/09/19 22:58 36.8 C 73 16 125/72 95
[2019-03-10] MEDS: OXYCODONE HCL IR 5 MG TAB (IMMEDIATE RELEASE) PO PRN ×2 (11:47→20:57)
[2019-03-10] MEDS: ONDANSETRON INJ 2 MG/ML 2 ML VIAL IV PRN (12:24)
--- NOTE | 2019-03-10 15:00 | Hospitalist Progress Note ---
Date of Service March 10, 2019 Assessment & Plan (1) Neurogenic claudication due to lumbar spinal stenosis: Has had back pain with bilateral leg pain for some time Status post lumbar decompression and fusion POD #2 Pain management, as per Ortho Anticoagulation as per Ortho Monitor CBC Acute blood loss anemia/postsurgical anemia -Hemoglobin 11.0, stable from yesterday,but down from 13.9 (earlier in February) -Denies any symptoms, such as chest pain, dizziness, lightheadedness -cont. 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 denies any fevers, chills, chest pain, shortness of breath, abdominal pain, nausea or vomiting. Back pain is well controlled. No difficulty moving legs, ambulating well. No BM yet, passing flatus. Review of Systems Review of Systems: All systems reviewed & are unremarkable except as noted in HPI & below Constitutional: no fever and no chills Respiratory: no cough and no dyspnea Cardiovascular: no chest pain, no palpitations and no edema Gastrointestinal: + constipation; no abdominal pain, no nausea and no vomiting Physical Exam Physical Exam: Physical Exam: Elderly male sitting up in chair, in no acute distress Constitutional: well developed, well nourished, cooperative Eyes: PERRL, EOMI, conjunctivae normal, anicteric sclerae ENMT: external ear and nose normal, oropharynx normal Neck: trachea midline, no thyromegaly Respiratory: normal respiratory effort; no respiratory distress Auscultation: lungs clear to auscultation bilaterally, no wheezing, rhonchi or crackles Cardiovascular: Rate/Rhythm: regular rate and regular rhythm, no murmurs noted Back: JEANNIE drain in place, draining serosanguineous fluid Gastrointestinal (Abdomen):abdomen normal to inspection and normal bowel sounds; not distended, nontender to palpation Neurologic: Alert and oriented x3, speech fluent, no facial asymmetry, moves all 4 extremities spontaneously Skin: Warm, dry, no rash, well-perfused Results & Data Vital Signs (Past 12 Hours) Vital Signs Temp Pulse Resp BP Pulse Ox 03/10/19 14:54 36.8 C 62 16 120/71 95 03/10/19 09:00 36.3 C L 66 18 111/72 95 Laboratory Results 03/10/19 03/10/19 03/08/19 Range/Units 06:16 06:16 06:37 WBC 11.12 H (4.8-10.8) K/uL RBC 4.08 L (4.7-6.1) M/uL Hgb 11.0 L (14.0-18.0) g/dL Hct 33.8 L (42-52) % MCV 82.8 (80-100) fL MCH 27.0 (25-34) pg MCHC 32.5 (32-36) g/dL RDW Std Deviation 42.6 (36.4-46.3) fL RDW Coeff of Halie 14.2 (11.5-14.5) % Plt Count 194 (130-400) K/uL MPV 11.0 H (7.4-10.4) fL Sodium 137 (136-145) mmol/L Potassium 4.1 (3.5-5.1) mmol/L Chloride 109 H (98-107) mmol/L Carbon Dioxide 25 (21-32) mmol/L Anion Gap 3.0 (3-11) BUN 22 H (7-18) mg/dl Creatinine 1.61 H (0.6-1.4) mg/dl Est Cr Clr Drug Dosing 44.2 ml/min Est GFR ( Amer) 47.8 Est GFR (Non-Af Amer) 41.2 BUN/Creatinine Ratio 13.5 (10-20) Glucose 153 H (70-99) mg/dl Calcium 8.5 (8.5-10.1) mg/dl Crossmatch See Detail Medications Administered Current Inpatient Medications Acetaminophen (Tylenol) 1,000 mg PO Q8H PRN PRN Reason: MILD Pain Rating 1,2,3 Stop: 04/07/19 12:16 Al Hydrox/Mg Hydrox/Simethicone (Maalox) 30 ml PO Q6H PRN PRN Reason: Dyspepsia Stop: 04/07/19 12:16 Aspirin (Ecotrin Ectab) 81 mg PO QAM [facility] Stop: 04/08/19 08:59 Last Admin: 03/10/19 08:20 Dose: 81 mg Documented by: Bisacodyl (Dulcolax) 10 mg [place] DAILY PRN PRN Reason: Constipation Stop: 04/07/19 12:16 Carvedilol (Coreg) 3.125 mg PO BID [facility] Stop: 04/07/19 20:59 Last Admin: 03/10/19 08:21 Dose: 3.125 mg Documented by: Diphenhydramine HCl (Benadryl Capsule) 25 mg PO Q6H PRN PRN Reason: Allergic Rhinitis/Insomnia Stop: 04/07/19 12:16 Famotidine (Pepcid) 20 mg PO Q12H PRN PRN Reason: Dyspepsia Stop: 04/07/19 12:16 Hydromorphone HCl (Dilaudid) 0.5 mg IV Q3H PRN PRN Reason: moderate pain (scale 4-6) Stop: 03/22/19 12:16 Hydromorphone HCl (Dilaudid) 1 mg IV Q3H PRN PRN Reason: severe pain (scale 7-10) Stop: 03/22/19 12:16 Hydroxyzine HCl (Vistaril) 25 mg PO Q8H PRN PRN Reason: Anxiety Stop: 04/07/19 12:16 Promethazine HCl 12.5 mg/ (Sodium Chloride) 50.5 mls @ 204 mls/hr IV Q6H PRN PRN Reason: Nausea &/or Vomiting Stop: 04/07/19 12:16 Lorazepam (Ativan) 0.5 mg in 1 mls @ 0.5 mls/min IV Q8H PRN PRN Reason: Sedation/Anxiety Stop: 04/07/19 12:16 Influenza Virus Vaccine Quadrival (Flu Vaccine, Do Not Administer) 1 ea N/A PRN PRN PRN Reason: Notification Stop: 04/07/19 12:16 Lorazepam (Ativan) 0.5 mg PO Q8H PRN PRN Reason: Sedation/Anxiety Stop: 04/07/19 12:16 Magnesium Hydroxide (Milk Of Magnesia) 30 ml PO DAILY PRN PRN Reason: Constipation Stop: 04/07/19 12:16 Metoclopramide HCl (Reglan) 10 mg IV Q6H PRN PRN Reason: Nausea &/or Vomiting Stop: 04/07/19 12:16 Naloxone HCl (Narcan) 0.1 mg IV Q5M PRN; Protocol PRN Reason: Oversedation/Resp Depression Stop: 04/07/19 12:16 Ondansetron HCl (Zofran) 4 mg IV Q6H PRN PRN Reason: Nausea &/or Vomiting Stop: 04/07/19 12:16 Last Admin: 03/10/19 12:24 Dose: 4 mg Documented by: Ondansetron HCl (Zofran Odt) 4 mg PO Q6H PRN PRN Reason: Nausea Stop: 04/07/19 12:16 Oxycodone HCl (Roxicodone Immediate Rel) 5 - 10 mg PO Q4H PRN PRN Reason: Moderate-Severe Pain Stop: 03/22/19 12:16 Last Admin: 03/10/19 11:47 Dose: 10 mg Documented by: Pneumococcal Polyvalent Vaccine (Pneumococcal Vacc, Do Not Administer) 1 ea N/A PRN PRN PRN Reason: Notification Stop: 04/07/19 12:16 Polyethylene Glycol (Miralax Powder Packet) 17 gm PO Q6 [facility] Stop: 04/08/19 05:59 Last Admin: 03/10/19 11:47 Dose: 17 gm Documented by: Prasugrel (Effient) 10 mg PO QAM [facility] Stop: 04/08/19 08:59 Last Admin: 03/10/19 08:21 Dose: 10 mg Documented by: Rosuvastatin Calcium (Crestor) 10 mg PO PM [facility] Stop: 04/07/19 20:59 Last Admin: 03/09/19 20:23 Dose: 10 mg Documented by: Senna/Docusate Sodium (Senokot S) 2 tab PO HS [facility] Stop: 04/07/19 20:59 Last Admin: 03/09/19 20:21 Dose: 2 tab Documented by: Sodium Biphosphate/Sodium Phosphate (Fleet Enema) 132 ml [place] ONE PRN PRN Reason: Constipation Stop: 04/07/19 12:16 Tramadol HCl (Ultram) 50 - 100 mg PO Q4H PRN PRN Reason: Moderate-Severe Pain Stop: 04/07/19 12:16 Last Admin: 03/09/19 16:42 Dose: 50 mg Documented by: [facility]alsartan (Diovan) [facility] [place] [facility]: 04/08/19 08:59 Last Admin: 03/10/19 08:20 Dose: 80 mg Documented by:
[2019-03-10] MEDS: ROSUVASTATIN CALCIUM 10 MG TAB PO SCH (20:55)
[2019-03-10] MEDS: DOCUSATE SODIUM/SENNA 50/8.6MG TAB PO SCH (20:55)
[2019-03-11] MEDS: POLYETHYLENE (MIRALAX) 17 GM PACK PO SCH (00:18)
--- NOTE | 2019-03-11 08:12 | Anesthesiology Progress Note ---
Date of Service March 11, 2019 Anesthesia Post Procedure Vital Signs Vital Signs: Temp Pulse Pulse Resp BP BP Pulse Ox 03/11/19 07:53 36.8 C 73 17 106/64 95 03/11/19 07:00 36.6 C 80 16 102/69 93 03/10/19 23:00 36.8 C 74 18 116/68 95 03/10/19 20:48 84 129/80 95 03/10/19 14:54 36.8 C 62 16 120/71 95 03/10/19 09:00 36.3 C L 66 18 111/72 95 Pain Intensity Bilateral Back: Pain Intensity: 4 Notes Mental Status: alert / awake / arousable Patient Amnestic to Procedure: Yes Nausea / Vomiting: adequately controlled Pain: adequately controlled Airway Patency, RR, SpO2: stable & adequate BP & HR: stable & adequate Hydration State: stable & adequate Anesthetic Complications: no major complications apparent
[2019-03-11] MEDS: VALSARTAN 80 MG TAB PO SCH (08:32)
[2019-03-11] MEDS: ASPIRIN 81 MG ECTAB PO SCH (08:32)
[2019-03-11] MEDS: carvediloL 3.125 MG TAB PO SCH (08:32)
[2019-03-11] MEDS: PRASugrel TAB 10 MG TAB PO SCH (08:33)
[2019-03-11] MEDS: OXYCODONE HCL IR 5 MG TAB (IMMEDIATE RELEASE) PO PRN (10:00)
--- NOTE | 2019-03-11 13:17 | Discharge Summary ---
Date of Service March 11, 2019 Admission HPI Per Admitting Provider This is a 73-year-old male presents with chronic persistent back and bilateral leg pain. After failing extensive course of nonoperative care is here for surgical invention. Principal Diagnosis Lumbar spinal stenosis with neurogenic claudication Discharge Data Allergies Allergy/AdvReac Type Severity Reaction Status Date / Time cephalexin [From Keflex] AdvReac Rash Verified 03/08/19 06:34 nitroglycerin AdvReac Hypotension Verified 03/08/19 06:34 perindopril [From Aceon] AdvReac Cough Verified 03/08/19 06:34 Consultations 03/08/19 12:17 Consult Case Management - Discharge Planning Routine Consult Hospitalist Routine Procedures Performed Operation Date: 03/08/19 07:45 Actual Procedures p L4-S1 Decompression Fusion, Use of Oseoamp and Infuse, Spinal Cord Monitoring(Not Applicable) - Kwadwo Saucedo DO Ordered Studies 03/08/19 07:45 FL fluoroscopy <1hr Routine FL lumbar spine 2-3V Routine Hospital Course (1) Neurogenic claudication due to lumbar spinal stenosis: Patient underwent lumbar decompression fusion tolerated so was taken to orthopedic for postoperative. Postop day 1 he was up and ambulating progressed appropriately through postop day #2 on postop day #3 had good strength testing JEANNIE drain decreasing appropriately. Pain well controlled. Subsequently discharged home. Discharge orders instructions from the chart for further review. Total Time Total Time Spent Total Time Spent (In Minutes): 20 minutes Discharge Plan Discharge Items Patient Disposition: Home - Self-Care Reason For Visit: LUMBAR SPINAL STENOSIS W/O NEUROGENIC CLAUDICATION Discharge Diagnosis: lumbar stenosis Activity: As commented below Non-emergency contact: Primary Care Provider Call non-emergency contact if: you have any medication questions Follow-up/Referrals: Tadeo Hawk D.O. [Primary Care Provider] - Diet: Regular Addtl Attending Provider Instructions: ACTIVITY RECOMMENDATIONS: SELF CARE INSTRUCTIONS AFTER THORACIC/LUMBAR FUSIONS 1. You may walk to your tolerance. It is good exercise for your legs and back. Expect some back and intermittent leg aches and pains. 2. You may perform "counter-top" level activities (make a sandwich, sulma with a project, etc.). 3. No bending or lifting of more than 10 pounds or back twisting of any nature (roll like a log when turning in bed). 4. You may ride in a car for 20-30 minutes at a time. No driving until after your first visit with your doctor. 5. Frequent changes of position and restricting sitting to 30 minutes at a time will help limit the amount of back spasms and stiffness you may experience. 6. You may discontinue the use of ambulatory aids (cane, crutches, etc.) once your strength and confidence allow. 7. You may ampoule inspector the shower and let water strike your incision when you arrive home at least once daily. Do not take a tub bath, sit in a hot tub or go into a swimming pool until after your first recheck in the office. SPECIAL CARE INSTRUCTIONS: VERY IMPORTANT TO READ AND REVIEW A. Your surgical incision has been closed with a cosmetic suture under the skin that will dissolve in about 6 weeks. In 14 days, you can use a pair of clean scissors and cut the suture that is left outside of the skin at the ends of your incision. 1. The small skin tapes can be removed 7 days after surgery if they have not fallen off by that point. 2. You may keep the wound open to air as much as possible to promote healing after post-op day number 5 unless told otherwise by your doctor. 3. If you think the wound looks like it is becoming infected (redness or worsening drainage) and/or you are experiencing fever, chill or worsening back pain and muscle spasms, contact the office so that we may evaluate you as soon as possible. B. Complications are uncommon, but please contact us if you have any signs or symptoms of: 1. wound infection (fever higher than 102.5 degrees F, redness, separation of wound, drainage, or increasing pain from the incision) 2. blood clots in legs (pain, swelling, redness and warmth in legs) 3. urinary tract infection (fever higher than 102.5 degrees F, burning upon urination or increased frequency of urination) 4. nerve problems (inability to walk on your toes or heels, numbness, loss of bowel or bladder control) 5. any other symptoms that concern you C. Please call the office at if you have any concerns or questions about your operation or recovery. D. No smoking! Smoking drastically decreases the chance of a solid fusion. E. Do not take any anti-inflammatory medications (Indocin, Advil, Motrin, Aspirin, Naprosyn, etc.) as these may inhibit the chance of a solid fusion. Tylenol is okay to take for pain. MANAGING PAIN AFTER SPINAL SURGERY 1. Narcotic medication is intended for short-term use and will be provided for surgical pain. Surgical pain usually lasts for a period of 4-6 weeks. Narcotic medication includes Percocet, Vicodin, Darvocet, Tylenol #3 or Lortab. 2. Longer-term pain is more appropriately treated with non-narcotic medication such as Tylenol ES. 3. Muscle spasm is not appropriately treated with narcotics. Muscle relaxers such as Soma, Flexeril or Skelaxin can be used along with Tylenol ES. 4. Remember that we all live with some "aches and pains". This is not unusual or uncommon after an injury or as we get older. a. Back pain is expected and may include muscle spasms for 4 to 6 weeks after surgery. The pain should gradually improve. If the pain worsens for no apparent reason, please contact the office. b. Intermittent leg pain may also be experienced and should not be concerned about unless it worsens for no apparent reason. If so, please contact the office. 5. We will provide appropriate medication within the normal guidelines of their prescribed use. We will also be very cautious and aware of potential abuse and extended duration of patients' medication needs. a. Pain medications are for your comfort and to assist with sleep and rest so that the tissue can heal. They are not provided in order to return to normal activity and should not be used through the day. To do so or worsening pain at night can result from ongoing tissue damage and development of tolerance to the prescribed medicine. 6. Please allow 2-3 days to process refills. Prescriptions will not be mailed but must be picked up at the office. FOLLOW UP VISIT: Keep your scheduled follow-up appointment. Any questions, please call the office at . Pending Studies at Discharge: No Stand-Alone Forms: [facility], Opioid Pain Management, Smoking Cessation Medications and DC Order Prescriptions: New tramadol 50 mg tablet 50 mg PO Q6H PRN (Reason: pain, moderate) Qty: 30 RF: 0 oxycodone 5 mg tablet 5 mg PO Q6H PRN (Reason: pain, severe) Qty: 30 RF: 0 Continued cetirizine [Zyrtec] 10 mg Tablet 5 mg PO PM RF: 0 valsartan 80 mg Tablet 80 mg PO QAM RF: 0 aspirin [Aspir-81] 81 mg Tablet,Delayed Release (Dr/Ec) 81 mg PO QAM RF: 0 carvedilol 3.125 mg Tablet 3.125 mg PO BID RF: 0 magnesium 250 mg Tablet 250 mg PO QAM RF: 0 rosuvastatin 10 mg Tablet 10 mg PO PM RF: 0 prasugrel 10 mg Tablet 10 mg PO QAM RF: 0 Discharge Orders: Discharge Order (Routine); Ordered 03/11/19 Ordered By: Kwadwo Bahena/Other Patient Handouts: Surgery Prevent DVT After, ED Stockings Charles Admission Data Admit Date/Time: 03/08/19 11:11 Attending Provider: Kwadwo Saucedo Admit Provider: Kwadwo Saucedo Primary Care Provider: Tadeo Hawk Other Providers: Shekhar Rogel Other Interventions: Discharge Summary Assessment (RN) Last Done: 03/11/19 10:16 DC Date/Time DO NOT enter until pt leaves facility: 03/11/19 11:22
== END 2019-03-11 11:22 | disposition home or self-care (01) | DRG 460 ==
LOC: ASU 06:09 → 3E 11:11